=== PATIENT | male | born 1965 | race Caucasian/White ===

== ENCOUNTER 2019-12-16 | Emergency (ER) | payer OTHER ==
[2019-12-17] MEDS ORDERED: VOLTAREN - GENE75 MG PO (00:51)
[2019-12-17] MEDS ORDERED: TRAMADOL HCL50 MG PO (00:51)
[2019-12-17] MEDS ORDERED: SYNTHROID88 MCG PO (01:04)
[2019-12-17] MEDS ORDERED: MONTELUKAST SOD10 MG PO (01:05)
[2019-12-17] MEDS ORDERED: LORATADINE10 M4 PO (01:05)
== END 2019-12-17 01:15 | disposition home or self-care (01) | DRG 605 ==
DX: S20.212A Contusion of left front wall of thorax, initial encounter (principal); V49.40XA Driver injured in collision with unspecified motor vehicles in traffic accident, initial encounter